=== PATIENT | female | born 1950 | race Caucasian/White ===

== ENCOUNTER 2019-01-29 16:48 | Emergency (ER) | payer MEDICARE, BC ==
[~2019-01-29] VITALS: Ht 157.5 cm; Wt 52.2 kg
[2019-01-29] MEDS ORDERED: AMLO5TAB9 PO (17:04)
[2019-01-29] MEDS ORDERED: ASPI81TA31 PO (17:04)
--- NOTE | 2019-01-29 17:05 | NUR ---
Dr Jensen at the bedside for MSE.
[2019-01-29 17:22] LABS: BASOPHILS # (AUTO) 0.1 K/uL (0.0-8.0); BASOPHILS % (AUTO) 1.4 % (0.0-2.0); EOSINOPHILS # (AUTO) 0.2 K/uL (0.0-0.7); EOSINOPHILS % (AUTO) 4.5 % (0.0-7.0); HEMOGLOBIN 14.2 g/dL (10.9-14.3); LYMPHOCYTES # (AUTO) 1.1 K/uL (20.0-40.0); LYMPHOCYTES % (AUTO) 22.5 % (20.5-51.5); MEAN CORPUSCULAR HGB CONC 33 g/dL (32.3-35.6); MEAN CORPUSCULAR VOLUME 97.1 fL (75.5-95.3); MONOCYTES # (AUTO) 0.3 K/uL (2.0-10.0); MONOCYTES % (AUTO) 6.8 % (0.0-11.0); NEUTROPHILS # (AUTO) 3.1 K/uL (1.8-8.9); NEUTROPHILS % (AUTO) 64.8 % (38.5-71.5); PLATELET COUNT (AUTO) 305 K/uL (179-408); RED BLOOD CELL COUNT(AUTO) 4.43 MIL/uL (3.63-4.92); WHITE BLOOD COUNT (AUTO) 4.8 K/uL (3.8-11.8)
[2019-01-29 17:49] VITALS: BP 144/88
--- NOTE | 2019-01-29 17:51 | NUR ---
Patient discharged to home in stable conditon. Written and verbal after care instructions given. Patient verbalizes understanding of instructions.
== END 2019-01-29 17:51 | disposition home or self-care (01) ==
LOC: ER 16:48
DX: S50.12XA Contusion of left forearm, initial encounter (principal); Z79.82 Long term (current) use of aspirin; Z79.899 Other long term (current) drug therapy; X58.XXXA Exposure to other specified factors, initial encounter; Y93.89 Activity, other specified; Y92.39 Other specified sports and athletic area as the place of occurrence of the external cause; Y99.8 Other external cause status
CPT/HCPCS: 36415; 85025; 85610; A4663